=== PATIENT | female | born 1970 | race Caucasian/White ===

== ENCOUNTER 2019-09-19 08:31 | Day surgery (SDC) | payer OTHER ==
[~2019-09-19 08:31] MED LIST: Buffered Lidocaine 1% SYRIN* 1 ML/SYRINGE INTRADERM ONE; Lactated Ringers 1000 ML Bag* 1,000 ML IV SCH; Lidocaine 1% INJ* 10 MG/ML 30 ML SDV ONE
[2019-09-19] MEDS ORDERED: Propofol* 10 MG/ML 20 ML BTL ONE (09:18)
[2019-09-19] MEDS ORDERED: Lidocaine 2% PF * 5 ML VIAL ONE (09:18)
[2019-09-19] MEDS ORDERED: fentaNYL* 50 MCG/ML 2 ML VIAL (100 MCG VIAL) ONE (09:18)
[2019-09-19] MEDS ORDERED: Naloxone* 0.4 MG/ML 1 ML VIAL IV PRN (09:37)
[2019-09-19 10:33] VITALS: BP 118/76
--- NOTE | 2019-09-19 11:49 | OP ---
DATE OF OPERATION: 09/19/19 [facility] DATE OF : 72 SURGEON: Diana Lu MD WEIGHT CONTROL ENGINEER: STANFORD Garner ANESTHESIA: Local MAC. PRE-OP DIAGNOSIS: Left carpal tunnel syndrome. POST-OP DIAGNOSIS: Left carpal tunnel syndrome. OPERATIVE PROCEDURE: Left carpal tunnel release. ESTIMATED BLOOD LOSS: Zero. TOURNIQUET TIME: About 10 minutes. INDICATION FOR PROCEDURE: Sera is a 49-year-old female who has numbness and tingling in the median nerve distribution of her left hand. She presents for left carpal tunnel release. DESCRIPTION OF PROCEDURE: The patient was brought to the operating room, was given a sedation anesthetic and a local infiltration of 10 cc of 1% plain lidocaine in the palm of her left hand. The skin of her left hand and forearm was prepped and draped in the usual sterile fashion. The hand and forearm were exsanguinated and the tourniquet elevated to 250 mmHg. A longitudinal incision was made in the palm in line with the ring finger. We dissected through the subcutaneous tissue down to the transverse carpal ligament. The ligament was divided sharply with a knife and then more proximally with the scissors. The nerve was dissected free from the surrounding tissue and there was an area of moderate compression at the mid portion of the ligament. The wound was copiously irrigated with saline and then skin edges were reapproximated in interrupted fashion with 4-0 nylon suture. The wound was dressed with Xeroform , 4x4, Webril, and an Yon wrap. The patient tolerated the procedure well and was brought to the recovery room in good condition. [id number]/[facility] #: [id number] MTDD
== END 2019-09-19 10:37 | disposition home or self-care (01) ==
LOC: OREAST 08:31
PROVIDERS: ATTEND Orthopaedic Surgery
DX: G56.02 Carpal tunnel syndrome, left upper limb (principal); Z87.891 Personal history of nicotine dependence; M19.90 Unspecified osteoarthritis, unspecified site
CPT/HCPCS: J2704; J3010

== ENCOUNTER 2019-09-25 12:59 | Day surgery (SDC) | payer OTHER ==
--- NOTE | 2019-08-29 10:17 | HP ---
PREOPERATIVE HISTORY AND PHYSICAL: DATE OF ADMISSION/SURGERY: 09/19/19 DATE OF OFFICE VISIT/ENCOUNTER: 08/28/19 ATTENDING SURGEON: Diana Lu MD * (DICTATED BY STANFORD FLORIAN) PROCEDURE: Left wrist carpal tunnel release. 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 She has had symptoms of numbness and tingling in the thumb, index and middle fingers with occasional pain and weakness ongoing for several years. She feels the symptoms most when she is performing repetitive tasks. She often has to use small tools at her job and she is having some trouble handling the tools. She occasionally drops them. She also gets symptoms that awaken her at night. She recently had a nerve conduction study performed on the left upper extremity and it showed moderate carpal tunnel syndrome. She had a right carpal tunnel release performed back [place] [address] Fernando and did quite well with that. She is now interested in pursuing a carpal tunnel release for the left. PAST MEDICAL HISTORY: Leg cramps. PAST SURGICAL HISTORY: 1. Right carpal tunnel release. 2. Right wrist ulnar shortening osteotomy. 3. Right foot cyst excision. 4. Right shoulder surgery. CURRENT MEDICATIONS: 1. Acetaminophen extra strength 500 mg 2 tabs q.8 hours p.r.n. pain. 2. Cyclobenzaprine HCl 10 mg 1 tab 2 to 3 times a day p.r.n. muscle cramps. 3. Ibuprofen 800 mg p.r.n. ALLERGIES: No known drug allergies. FAMILY MEDICAL HISTORY: Cancer. SOCIAL HISTORY: The patient is employed at [employer] as a fire tender. She is a former smoker. She quit in 2011. Prior to that, she smoked since age 17 a pack and a half per day. She uses marijuana on occasion. She denies alcohol use. REVIEW OF SYSTEMS: Negative for general, cephalic, cardiovascular, respiratory , GI, , other musculoskeletal, integumentary, endocrine, neurologic, and hematologic symptoms. Infectious Disease: Negative for MRSA, hepatitis C, HIV. PHYSICAL EXAMINATION GENERAL: A well-developed, well-nourished 49-year-old female, in no acute distress. VITAL SIGNS: Height 5 feet 9-3/4 inches, weight 198 pounds. Pulse rate 64, blood pressure 102/76. HEENT: Normocephalic, atraumatic. Pupils are equal, round, and reactive to light and accommodation. Extraocular movements are intact. Throat is clear. NECK: Supple. No palpable lymph nodes. PULMONARY: Lungs are clear to auscultation bilaterally. No wheezes, rales, or rhonchi. CARDIOVASCULAR: Regular rate and rhythm. S1, S2. No murmurs, rubs, or gallops. No edema. ABDOMEN: Positive bowel sounds. Soft, nontender. NEUROLOGICAL: Alert and oriented x3. Cranial nerves II through XII are intact. MUSCULOSKELETAL: On exam of her left wrist, she has mild atrophy at the thenar eminence and weakness with thumb abduction on the left when compared to the right. She has a positive Tinel's sign and positive median nerve compression test at the left wrist. Negative Tinel's at the elbow. She has good motion in her wrist and fingers. Decreased file clerk strength on the left when compared to the right. Sensation is intact to light touch throughout the hand. IMAGING STUDIES: EMG nerve conduction study shows moderate carpal tunnel syndrome on the left. IMPRESSION: As above. PLAN: The patient is scheduled to undergo a left wrist carpal tunnel release with Dr. Lu on 09/19/19. She will return to the office in 10 days for postop followup and suture removal. She will use [id number] ibuprofen and /or Tylenol for postoperative pain management. STANFORD FLORIAN [id number]/[facility] #: [id number] [facility]ITALBel[facility]
[~2019-09-25 12:59] MED LIST changes: +Dexamethasone TAB* 4 MG PO ONE; +DiMENhydriNATE IV* 50 MG/ML VIAL IV PUSH PRN; +Famotidine IV* 10 MG/ML 2 ML (20 mg) IV ONE; +HYDROmorphone INJ1* 1 MG/ML SYRINGE IV PRN; -Lidocaine 1% INJ* 10 MG/ML 30 ML SDV ONE; +Naloxone* 0.4 MG/ML 1 ML VIAL IV PRN; +Ondansetron ODT TAB* 4 MG PO ONE; +PROCHLORPERAZINE INJ 5 MG/ML 2 ML VIAL IV PRN; +fentaNYL* 50 MCG/ML 2 ML VIAL (100 MCG VIAL) IV PRN; +oxyCODONE TAB* 5 MG TAB PO PRN
[2019-09-25] MEDS ORDERED: fentaNYL* 50 MCG/ML 2 ML VIAL (100 MCG VIAL) ONE (13:12)
[2019-09-25] MEDS ORDERED: KETAMINE HCL* 50 MG/ML 10 ML VIAL ONE (13:13)
[2019-09-25] MEDS ORDERED: Midazolam* 1 MG/ML 5 ML VIAL (5 MG) ONE (13:13)
[2019-09-25] MEDS ORDERED: Dexamethasone TAB* 4 MG ONE (13:27)
[2019-09-25] MEDS ORDERED: Ondansetron ODT TAB* 4 MG ONE (13:27)
[2019-09-25] MEDS ORDERED: Famotidine IV* 10 MG/ML 2 ML (20 mg) ONE (13:28)
[2019-09-25] MEDS ORDERED: ceFAZolin 2 GM PREMIX in ORs 2 GM/50 ML BAG ONE (13:28)
[2019-09-25] MEDS ORDERED: Ropivacaine 0.2% * 2 MG/ML VIAL ONE (14:04)
[2019-09-25] MEDS ORDERED: Chloroprocaine 2%* 20 ML VIAL ONE (14:04)
[2019-09-25] MEDS ORDERED: Lidocaine 1% w EPI 1:200,000* SDV 30 ML VIAL ONE (14:04)
[2019-09-25] MEDS ORDERED: Acetaminophen IV 1GM/100ML * 100 ML ONE (14:42)
[2019-09-25 16:24] VITALS: BP 113/65
--- NOTE | 2019-10-03 04:36 | OP ---
DATE OF OPERATION: 09/25/19 - [facility] DATE OF : 72 SURGEON: Jules Gilman MD ENGINEERING DESIGN SUPERVISOR: None available. ANESTHESIA: General. PRE-OP DIAGNOSIS: Synovitis and fat pad syndrome. POST-OP DIAGNOSES: 1. Synovitis and fat pad syndrome. 2. Some partial tearing of the lateral meniscus. 3. Mild chondrosis of the patella and medial femoral condyle as well as plica. OPERATIVE PROCEDURE: 1. Partial lateral meniscectomy. 2. Chondroplasty of the patella and the medial femoral condyle. 3. Synovectomy with lysis of adhesions. INDICATIONS: Sera Kaur is a 49-year-old female who sustained a work-related injury over a year ago. She failed conservative management including physical therapy, anti-inflammatories, ice, heat, and injections. She has persistent pain and catching. After obtaining workers comp including extensive discussion of risks and benefits of operative procedure versus nonoperative treatment, she has elected to proceed with surgical treatment. Risks included, but were not limited to, bleeding; infection; damage to nerves, vessels, surrounding structures; wound nonhealing; persistent pain; need for further surgery; scarring; stiffness; incomplete relief of symptoms and risks of anesthesia. She has elected to proceed. DESCRIPTION OF PROCEDURE: The patient was greeted in the preoperative area. The correct extremity was marked and consent was confirmed. She was then brought back to the operative suite where she was placed in supine position on the operating table. She then underwent general anesthesia and LMA intubation after a non- sterile tourniquet was placed high on the proximal thigh. A lateral post was used to position. The leg was then prepped and draped in usual sterile fashion beginning with chlorhexidine soap, scrub, and alcohol wipe and a final prep with ChloraPrep. After appropriate surgical pause indicating side, site, procedure and administration of antibiotics, the knee was intra-articularly injected with 1% lidocaine with epi. The anterior lateral portal was made using an 11 blade. The scope was then introduced into the joint. The anterior medial portal was made in outside in fashion. There was abundant thick bursa that was obviously rubbing against the medial and lateral condyle. The ACL and PCL were intact. The shaver, biters and electrocautery device was used to remove the plica to help visualize the knee. The patellofemoral joint was examined. There was some mild chondrosis at the inferior aspect which was debrided back using a shaver. The remainder of the compartment had grade 0 to 1 changes. The medial compartment was examined. There was no real tearing of the medal meniscus. The condyle had a small area of grade 2 changes from there was friction from the plica. The remainder of the condyle had grade 0 to 1 changes. A small chondroplasty was done in the medial condyle where there was some loose tissue. The medial gutter was examined and found to be intact with no loose debris. The lateral compartment was examined and there were grade 2 changes of the lateral condyle. The root of the meniscus had some unstable fraying as well as the body of the meniscus had an unstable flap and fraying which was debrided back using sravan and biters. The condyle had grade 0 changes. The medial plateau had grade 1 and 2 changes. The meniscectomy was completed in the lateral side and chondroplasty of the medial condyle and patellofemoral joint was completed. The wounds were copiously irrigated with sterile saline. Hemostasis was obtained. The knee was thoroughly lavaged and removed of any loose debris. Final images were obtained. The portals were closed with 3-0 nylon. The wounds were superficially and intra-articularly injected with 0.2% ropivacaine. Sterile dressings were applied, as well as a Cryo/Cuff. She was awoken from anesthesia and transferred to PACU in stable condition. POSTOPERATIVE PLAN: She will be weightbearing as tolerated with crutches for 3 to 5 days. Discharge on pain medications. DVT prophylaxis was considered, but deferred due to no previous personal or family history. I will see the patient back in 10 to 14 days. [id number]/[facility] #: [id number] [facility]ENTER[facility]
== END 2019-09-25 16:15 | disposition home or self-care (01) ==
LOC: OREAST 12:59
PROVIDERS: ATTEND Orthopaedic Surgery
DX: S83.282A Other tear of lateral meniscus, current injury, left knee, initial encounter (principal); M25.462 Effusion, left knee; M65.862 Other synovitis and tenosynovitis, left lower leg; M79.4 Hypertrophy of (infrapatellar) fat pad; M67.52 Plica syndrome, left knee; M93.862 Other specified osteochondropathies, left lower leg; X58.XXXA Exposure to other specified factors, initial encounter; Y93.9 Activity, unspecified; Y92.9 Unspecified place or not applicable; Y99.0 Civilian activity done for income or pay
CPT/HCPCS: A9270-GY; J0690; J2001; J2250; J2400; J2795; J3010; J8540